=== PATIENT | female | born 1950 | race Caucasian/White ===

== ENCOUNTER 2021-06-05 22:21 | Inpatient (IN) | payer MEDICARE, BC ==
[~2021-06-05] VITALS: Ht 152.4 cm; Wt 100.0 kg
[2021-06-06 01:36] VITALS: BP 117/64
[2021-06-06] MEDS ORDERED: ACETAMINOPHEN 325 MG TABLET PO PRN ×2 (02:00→08:00)
[2021-06-06] MEDS ORDERED: LABETALOL 5MG/ML, 20ML IVPush PRN (02:00)
[2021-06-06] MEDS ORDERED: LORazepam 2 MG/ML, 1ML ONE (02:01)
[2021-06-06] MEDS: LORazepam 2 MG/ML, 1ML IVPush PRN ×2 (02:07→02:33)
[2021-06-06] MEDS ORDERED: PLEASE ENTER ALLERGIES MC SCH (02:30)
[2021-06-06 03:45] LABS: BASOPHILS % (AUTO) 0 % (0-1); EOSINOPHILS % (AUTO) 0 % (1-7); LYMPHOCYTES % (AUTO) 5 % (22-44); MEAN CORPUSCULAR HEMOGLOBIN 29.5 pg (27.0-34.8); MEAN PLATELET VOLUME 7.9 fL (7.4-10.4); MONOCYTES % (AUTO) 4 % (2-9); NEUTROPHILS % (AUTO) 91 % (42-75); PLATELET COUNT 245 x10^3/uL (130-400); RED BLOOD COUNT 4.85 x10^6/uL (3.82-5.3); RED CELL DISTRIBUTION WIDTH 13.6 % (9.6-15.2)
[2021-06-06 03:56] LABS: ALBUMIN 2.4 g/dL (3.4-5.0); ANION GAP 7 mmol/L (5-15); CALCIUM 8.5 mg/dL (8.5-10.1); CHLORIDE 114 mmol/L (98-107)
[2021-06-06 03:59] LABS: ALANINE AMINOTRANSFERASE 32 U/L (12-78); BILIRUBIN,TOTAL 0.6 mg/dL (0.2-1.0); CREATINE KINASE, TOTAL 479 U/L (26-192); TOTAL PROTEIN 6.7 g/dL (6.4-8.2); TROPONIN I 0.018 ng/mL (0.000-0.045)
[2021-06-06] MEDS ORDERED: THIAMINE 200 MG in SODIUM CHLORIDE 0.9% 50 ML IV ONE (04:00)
[2021-06-06] MEDS ORDERED: DOXYCYCLINE 100 MG in DEXTROSE 5% 250 ML IV SCH (04:00)
[2021-06-06] MEDS ORDERED: ALBU90AE2 INH (04:08)
[2021-06-06] MEDS ORDERED: ATOR20TA86 PO (04:08)
[2021-06-06] MEDS ORDERED: HYDR-3241 PO (04:08)
[2021-06-06] MEDS ORDERED: SERT-238 PO (04:08)
[2021-06-06] MEDS ORDERED: ZOLP10TA PO (04:08)
[2021-06-06] MEDS ORDERED: SOLI10TA7 PO (04:08)
[2021-06-06] MEDS ORDERED: TOPI50CA5 PO (04:08)
[2021-06-06] MEDS ORDERED: PREG200C PO (04:08)
[2021-06-06] MEDS ORDERED: METH-640 PO (04:08)
[2021-06-06 04:21] LABS: ALKALINE PHOSPHATASE 106 U/L (45-117)
[2021-06-06] MEDS: DEXAMETHASONE 4 MG/ML, 1ML IVPush SCH (04:39)
[2021-06-06 04:46] LABS: FREE T4 (FREE THYROXINE) 0.91 ng/dL (0.76-1.46)
[2021-06-06] MEDS: CEFTRIAXONE 1,000 MG in DEXTROSE 5% 50 ML IVPB SCH (05:00)
[2021-06-06] MEDS ORDERED: LORazepam 2 MG/ML, 1ML IVPush PRN (05:30)
[2021-06-06 07:20] VITALS: BP 129/83
[2021-06-06] MEDS ORDERED: FUROSEMIDE 40 MG/4 ML IV ONE (07:30)
[2021-06-06] MEDS ORDERED: ALBUTEROL/IPRATROPIUM 2.5MG/0.5MG, 3 ML HHN SCH (07:30)
[2021-06-06] MEDS ORDERED: ALBUTEROL SULFATE 2.5 MG/3 ML NPPB PRN (07:30)
[2021-06-06] MEDS ORDERED: ONDANSETRON 2MG/ML, 2ML IVPush PRN (08:00)
[2021-06-06] MEDS ORDERED: POLYETHYLENE GLYCOL 17 GM PACKET PO PRN (08:00)
[2021-06-06] MEDS ORDERED: HALOPERIDOL 5 MG/ML IVPush PRN (08:00)
[2021-06-06] MEDS ORDERED: GUAIFENESIN/COD200MG-20MG/10ML LIQUID PO PRN (08:00)
[2021-06-06] MEDS: ENOXAPARIN 100 MG/ML SQ SCH ×2 (08:44→20:37)
[2021-06-06] MEDS ORDERED: ALBUTEROL HFA 90 MCG/SPRAY INH PRN (09:00)
[2021-06-06 10:54] LABS: O2 FLOW 10 L/min
[2021-06-06 10:57] LABS: FREE T4 (FREE THYROXINE) 0.95 ng/dL (0.76-1.46); TROPONIN I 0.015 ng/mL (0.000-0.045)
[2021-06-06] MEDS: ALBUTEROL-IPRATROPIUM MDI INH INH SCH ×3 (11:00→19:34)
[2021-06-06] MEDS: ZINC SULFATE 220 MG CAPSULE PO SCH (11:23)
[2021-06-06] MEDS: SENNA/DOCUSATE TABLET PO SCH (11:23)
[2021-06-06] MEDS: ASCORBIC ACID 500 MG TABLET PO SCH ×2 (11:23→17:36)
[2021-06-06] MEDS: CHOLECALCIFEROL 1,000 UNIT TABLET PO SCH (11:23)
[2021-06-06 11:24] VITALS: BP 133/84
[2021-06-06 13:53] VITALS: BP 133/82
[2021-06-06 14:14] LABS: TROPONIN I < 0.015 ng/mL (0.000-0.045)
[2021-06-06] MEDS ORDERED: GLUCAGON 1 MG IM PRN (15:00)
[2021-06-06] MEDS ORDERED: DEXTROSE 50%, 50ML SYRINGE IVPush PRN (15:00)
[2021-06-06] MEDS ORDERED: LIDOCAINE-MPF 1%, 2ML ENDO PRN (15:00)
[2021-06-06] MEDS ORDERED: DEXTROSE 4 GM TAB.CHEW PO PRN (15:00)
[2021-06-06] MEDS ORDERED: PHARMACY MAY ADJ FOR RENAL FX MC SCH (15:00)
[2021-06-06] MEDS ORDERED: REMDESIVIR 200 MG in SODIUM CHLORIDE 0.9% 250 ML IVPB ONE (15:30)
[2021-06-06] MEDS: FUROSEMIDE 40 MG/4 ML IV SCH (17:36)
[2021-06-06] MEDS: NOREPINEPHRINE 8 MG in SODIUM CHLORIDE 0.9% 242 ML IV PRN (17:45)
[2021-06-06] MEDS: PROPOFOL 100 ML IV PRN ×3 (17:46→21:50)
[2021-06-06] MEDS ORDERED: ETOMIDATE 20 MG/10 ML ONE (19:18)
[2021-06-06] MEDS ORDERED: PROPOFOL 10 MG/ML, 100ML IV ONE (19:18)
[2021-06-06] MEDS ORDERED: MIDAZOLAM 1 MG/ML, 5ML ONE (19:18)
[2021-06-06] MEDS: DOXYCYCLINE 100MG TABLET PO SCH (20:38)
[2021-06-06] MEDS: SODIUM CHLORIDE FLUSH 10ML SYR IVF SCH (20:38)
[2021-06-06] MEDS ORDERED: FAMOTIDINE 10 MG TAB PO SCH (21:00)
[2021-06-07] MEDS: CEFTRIAXONE 1,000 MG in DEXTROSE 5% 50 ML IVPB SCH (03:55)
[2021-06-07] MEDS: PROPOFOL 100 ML IV PRN ×5 (04:36→20:37)
[2021-06-07 04:59] LABS: BASOPHILS % (AUTO) 0 % (0-1); EOSINOPHILS % (AUTO) 0 % (1-7); LYMPHOCYTES % (AUTO) 9 % (22-44); MEAN CORPUSCULAR HEMOGLOBIN 29.9 pg (27.0-34.8); MEAN CORPUSCULAR HGB CONC 33.6 g/dL (32.4-35.8); MEAN PLATELET VOLUME 8.1 fL (7.4-10.4); MONOCYTES % (AUTO) 6 % (2-9); NEUTROPHILS % (AUTO) 86 % (42-75); PLATELET COUNT 378 x10^3/uL (130-400); RED BLOOD COUNT 4.77 x10^6/uL (3.82-5.3); RED CELL DISTRIBUTION WIDTH 13.4 % (9.6-15.2)
[2021-06-07 05:08] LABS: ALANINE AMINOTRANSFERASE 56 U/L (12-78); ALBUMIN 2.2 g/dL (3.4-5.0); ANION GAP 8 mmol/L (5-15); CALCIUM 9.1 mg/dL (8.5-10.1); CHLORIDE 110 mmol/L (98-107); CREATININE 0.69 mg/dL (0.55-1.02)
[2021-06-07 05:11] LABS: ALKALINE PHOSPHATASE 104 U/L (45-117); BILIRUBIN,TOTAL 0.7 mg/dL (0.2-1.0); TOTAL PROTEIN 6.6 g/dL (6.4-8.2)
[2021-06-07] MEDS ORDERED: MAGNESIUM SULFATE PMX 2GM/50ML 50 ML IV ONE (07:00)
[2021-06-07 07:25] LABS: MICROSCOPIC INDICATED
[2021-06-07] MEDS: FUROSEMIDE 40 MG/4 ML IV SCH ×2 (07:43→16:58)
[2021-06-07] MEDS: POTASSIUM CHLORIDE 20 MEQ PACKET PO SCH ×2 (07:43→16:58)
[2021-06-07] MEDS: ASCORBIC ACID 500 MG TABLET PO SCH ×2 (07:43→16:58)
[2021-06-07] MEDS: SODIUM CHLORIDE FLUSH 10ML SYR IVF SCH ×2 (07:44→20:32)
[2021-06-07] MEDS: SENNA/DOCUSATE TABLET PO SCH (08:58)
[2021-06-07] MEDS: ENOXAPARIN 100 MG/ML SQ SCH ×2 (09:11→20:33)
[2021-06-07] MEDS: DOXYCYCLINE 100MG TABLET PO SCH ×2 (09:11→20:32)
[2021-06-07] MEDS: CHOLECALCIFEROL 1,000 UNIT TABLET PO SCH (09:11)
[2021-06-07] MEDS: ZINC SULFATE 220 MG CAPSULE PO SCH (09:11)
[2021-06-07] MEDS: DEXAMETHASONE 4 MG/ML, 1ML IVPush SCH (09:12)
[2021-06-07] MEDS: FAMOTIDINE 20 MG/2 ML IVPush SCH ×2 (09:12→20:33)
[2021-06-07] MEDS ORDERED: ALBUTEROL HFA 90 MCG/SPRAY INH PRN (10:00)
[2021-06-07] MEDS ORDERED: ALBUTEROL SULFATE 2.5 MG/3 ML NPPB PRN (10:00)
[2021-06-07] MEDS ORDERED: ALBUTEROL SULFATE 2.5MG/0.5ML NPPB PRN (10:00)
[2021-06-07] MEDS: THIAMINE 100MG TABLET PO/NG SCH (10:45)
[2021-06-07] MEDS: NOREPINEPHRINE 8 MG in SODIUM CHLORIDE 0.9% 242 ML IV PRN (10:45)
[2021-06-07] MEDS ORDERED: ALBUTEROL/IPRATROPIUM 2.5MG/0.5MG, 3 ML NPPB SCH (11:00)
[2021-06-07] MEDS: ALBUTEROL/IPRATROPIUM 2.5MG/0.5MG, 3 ML NPPB SCH ×2 (15:00→19:05)
[2021-06-07] MEDS ORDERED: REMDESIVIR 100 MG in SODIUM CHLORIDE 0.9% 250 ML IVPB SCH (15:30)
[2021-06-07] MEDS: FENTANYL PF 1,000 MCG in SODIUM CHLORIDE 0.9% 80 ML IV PRN (16:58)
[2021-06-08] MEDS: PROPOFOL 100 ML IV PRN ×7 (00:18→23:59)
[2021-06-08] MEDS: ALBUTEROL/IPRATROPIUM 2.5MG/0.5MG, 3 ML NPPB SCH ×5 (03:05→19:40)
[2021-06-08] MEDS: CEFTRIAXONE 1,000 MG in DEXTROSE 5% 50 ML IVPB SCH (04:02)
[2021-06-08] MEDS: FENTANYL PF 1,000 MCG in SODIUM CHLORIDE 0.9% 80 ML IV PRN ×3 (04:05→20:43)
[2021-06-08 04:35] LABS: BASOPHILS % (AUTO) 0 % (0-1); EOSINOPHILS % (AUTO) 0 % (1-7); LYMPHOCYTES % (AUTO) 12 % (22-44); MEAN CORPUSCULAR HEMOGLOBIN 29.8 pg (27.0-34.8); MEAN CORPUSCULAR HGB CONC 33.1 g/dL (32.4-35.8); MEAN PLATELET VOLUME 8.3 fL (7.4-10.4); MONOCYTES % (AUTO) 4 % (2-9); NEUTROPHILS % (AUTO) 84 % (42-75); PLATELET COUNT 341 x10^3/uL (130-400); RED BLOOD COUNT 4.61 x10^6/uL (3.82-5.3); RED CELL DISTRIBUTION WIDTH 13.4 % (9.6-15.2)
[2021-06-08 04:43] LABS: ANION GAP 6 mmol/L (5-15); CALCIUM 8.6 mg/dL (8.5-10.1); CHLORIDE 110 mmol/L (98-107); CREATININE 0.57 mg/dL (0.55-1.02)
[2021-06-08] MEDS ORDERED: POTASSIUM CHLORIDE 30 MEQ in SODIUM CHLORIDE 0.9% 100 ML IV ONE ×2 (06:00→09:00)
[2021-06-08] MEDS: FUROSEMIDE 40 MG/4 ML IV SCH ×2 (06:39→16:35)
[2021-06-08] MEDS: SODIUM CHLORIDE FLUSH 10ML SYR IVF SCH ×2 (09:00→20:41)
[2021-06-08] MEDS: POTASSIUM CHLORIDE 20 MEQ PACKET PO SCH ×4 (09:00→20:42)
[2021-06-08] MEDS: ENOXAPARIN 100 MG/ML SQ SCH ×2 (09:00→20:42)
[2021-06-08] MEDS: ZINC SULFATE 220 MG CAPSULE PO SCH (09:32)
[2021-06-08] MEDS: SENNA/DOCUSATE TABLET PO SCH (09:32)
[2021-06-08] MEDS: CHOLECALCIFEROL 1,000 UNIT TABLET PO SCH (09:32)
[2021-06-08] MEDS: THIAMINE 100MG TABLET PO/NG SCH (09:32)
[2021-06-08] MEDS: DEXAMETHASONE 4 MG/ML, 1ML IVPush SCH (09:33)
[2021-06-08] MEDS: ASCORBIC ACID 500 MG TABLET PO SCH ×2 (09:33→16:35)
[2021-06-08] MEDS: DOXYCYCLINE 100MG TABLET PO SCH ×2 (09:33→20:42)
[2021-06-08] MEDS: FAMOTIDINE 20 MG/2 ML IVPush SCH ×2 (09:33→20:42)
[2021-06-08] MEDS: NOREPINEPHRINE 8 MG in SODIUM CHLORIDE 0.9% 242 ML IV PRN (10:09)
[2021-06-08] MEDS ORDERED: MIDAZOLAM 1 MG/ML, 5ML ONE (15:18)
[2021-06-08] MEDS ORDERED: MIDAZOLAM HCL 50 MG in SODIUM CHLORIDE 0.9% 40 ML IV PRN (15:30)
[2021-06-08] MEDS ORDERED: MIDAZOLAM 1 MG/ML, 5ML IVPush ONE (15:30)
[2021-06-08 21:23] LABS: ALANINE AMINOTRANSFERASE 40 U/L (12-78); ANION GAP 5 mmol/L (5-15); CALCIUM 8.8 mg/dL (8.5-10.1); CHLORIDE 111 mmol/L (98-107); CREATININE 0.59 mg/dL (0.55-1.02)
[2021-06-08 21:26] LABS: ALKALINE PHOSPHATASE 97 U/L (45-117); BILIRUBIN,TOTAL 0.4 mg/dL (0.2-1.0); TOTAL PROTEIN 6.6 g/dL (6.4-8.2)
[2021-06-09] MEDS: ALBUTEROL/IPRATROPIUM 2.5MG/0.5MG, 3 ML NPPB SCH ×4 (01:40→20:12)
[2021-06-09] MEDS: PROPOFOL 100 ML IV PRN ×5 (02:39→19:56)
[2021-06-09] MEDS: CEFTRIAXONE 1,000 MG in DEXTROSE 5% 50 ML IVPB SCH (03:37)
[2021-06-09 05:31] LABS: BASOPHILS % (AUTO) 0 % (0-1); EOSINOPHILS % (AUTO) 2 % (1-7); LYMPHOCYTES % (AUTO) 7 % (22-44); MEAN CORPUSCULAR HEMOGLOBIN 29.6 pg (27.0-34.8); MEAN CORPUSCULAR HGB CONC 33.1 g/dL (32.4-35.8); MONOCYTES % (AUTO) 4 % (2-9); NEUTROPHILS % (AUTO) 87 % (42-75); PLATELET COUNT 394 x10^3/uL (130-400); RED BLOOD COUNT 4.52 x10^6/uL (3.82-5.3); RED CELL DISTRIBUTION WIDTH 13.3 % (9.6-15.2)
[2021-06-09 05:55] LABS: ANION GAP 5 mmol/L (5-15); CALCIUM 9.1 mg/dL (8.5-10.1); CHLORIDE 109 mmol/L (98-107)
[2021-06-09 05:56] LABS: CREATININE 0.45 mg/dL (0.55-1.02); TRIGLYCERIDES 159 mg/dL (50-200)
[2021-06-09] MEDS: FUROSEMIDE 40 MG/4 ML IV SCH ×2 (06:31→16:32)
[2021-06-09] MEDS ORDERED: PLEASE ENTER HEIGHT MC SCH (07:00)
[2021-06-09] MEDS: NOREPINEPHRINE 8 MG in SODIUM CHLORIDE 0.9% 242 ML IV PRN ×2 (08:11→16:32)
[2021-06-09] MEDS: FENTANYL PF 1,000 MCG in SODIUM CHLORIDE 0.9% 80 ML IV PRN ×2 (08:11→19:55)
[2021-06-09] MEDS: ENOXAPARIN 100 MG/ML SQ SCH ×2 (09:38→19:57)
[2021-06-09] MEDS: POTASSIUM CHLORIDE 20 MEQ PACKET PO SCH ×2 (10:44→16:31)
[2021-06-09] MEDS: FAMOTIDINE 20 MG/2 ML IVPush SCH ×2 (10:44→19:57)
[2021-06-09] MEDS: DEXAMETHASONE 4 MG/ML, 1ML IVPush SCH (10:45)
[2021-06-09] MEDS: DOXYCYCLINE 100MG TABLET PO SCH ×2 (10:45→19:56)
[2021-06-09] MEDS: THIAMINE 100MG TABLET PO/NG SCH (10:46)
[2021-06-09] MEDS: ASCORBIC ACID 500 MG TABLET PO SCH ×2 (10:46→16:31)
[2021-06-09] MEDS: CHOLECALCIFEROL 1,000 UNIT TABLET PO SCH (10:47)
[2021-06-09] MEDS: ZINC SULFATE 220 MG CAPSULE PO SCH (10:47)
[2021-06-09] MEDS: SENNA/DOCUSATE TABLET PO SCH (10:49)
[2021-06-09] MEDS: SODIUM CHLORIDE FLUSH 10ML SYR IVF SCH ×2 (10:49→19:57)
[2021-06-09 11:39] LABS: ALBUMIN 1.8 g/dL (3.4-5.0); ANION GAP 7 mmol/L (5-15); CALCIUM 8.7 mg/dL (8.5-10.1); CHLORIDE 109 mmol/L (98-107)
[2021-06-09 11:43] LABS: ALANINE AMINOTRANSFERASE 35 U/L (12-78); ALKALINE PHOSPHATASE 95 U/L (45-117); BILIRUBIN,TOTAL 0.5 mg/dL (0.2-1.0); CREATININE 0.49 mg/dL (0.55-1.02); TOTAL PROTEIN 6.4 g/dL (6.4-8.2)
[2021-06-09] MEDS: DOXYCYCLINE 50 MG/5 ML ORAL SUSP PO SCH (22:21)
[2021-06-10] MEDS: ALBUTEROL/IPRATROPIUM 2.5MG/0.5MG, 3 ML NPPB SCH ×4 (01:54→19:32)
[2021-06-10] MEDS: CEFTRIAXONE 1,000 MG in DEXTROSE 5% 50 ML IVPB SCH (04:21)
[2021-06-10] MEDS: PROPOFOL 100 ML IV PRN ×3 (04:21→23:12)
[2021-06-10 05:19] LABS: BASOPHILS % (AUTO) 0 % (0-1); EOSINOPHILS % (AUTO) 3 % (1-7); LYMPHOCYTES % (AUTO) 10 % (22-44); MEAN CORPUSCULAR HEMOGLOBIN 29.6 pg (27.0-34.8); MEAN CORPUSCULAR HGB CONC 32.9 g/dL (32.4-35.8); MEAN PLATELET VOLUME 8.4 fL (7.4-10.4); MONOCYTES % (AUTO) 5 % (2-9); NEUTROPHILS % (AUTO) 82 % (42-75); PLATELET COUNT 398 x10^3/uL (130-400); RED BLOOD COUNT 4.45 x10^6/uL (3.82-5.3); RED CELL DISTRIBUTION WIDTH 13.6 % (9.6-15.2)
[2021-06-10 05:26] LABS: ANION GAP 3 mmol/L (5-15); CALCIUM 8.9 mg/dL (8.5-10.1); CHLORIDE 110 mmol/L (98-107); CREATININE 0.46 mg/dL (0.55-1.02)
[2021-06-10] MEDS: FUROSEMIDE 40 MG/4 ML IV SCH (06:31)
[2021-06-10] MEDS: FAMOTIDINE 20 MG/2 ML IVPush SCH ×2 (09:44→20:53)
[2021-06-10] MEDS: SENNA/DOCUSATE TABLET PO SCH (09:44)
[2021-06-10] MEDS: ZINC SULFATE 220 MG CAPSULE PO SCH (09:44)
[2021-06-10] MEDS: DEXAMETHASONE 4 MG/ML, 1ML IVPush SCH (09:44)
[2021-06-10] MEDS: CHOLECALCIFEROL 1,000 UNIT TABLET PO SCH (09:45)
[2021-06-10] MEDS: THIAMINE 100MG TABLET PO/NG SCH (09:46)
[2021-06-10] MEDS: ENOXAPARIN 100 MG/ML SQ SCH ×2 (09:46→20:54)
[2021-06-10] MEDS: SODIUM CHLORIDE FLUSH 10ML SYR IVF SCH ×2 (09:49→20:53)
[2021-06-10] MEDS: DOXYCYCLINE 50 MG/5 ML ORAL SUSP PO SCH ×2 (09:53→20:53)
[2021-06-10] MEDS: ASCORBIC ACID 500 MG TABLET PO SCH ×2 (09:53→16:53)
[2021-06-10] MEDS: FENTANYL PF 2,500 MCG in SODIUM CHLORIDE 0.9% 200 ML IV PRN (10:42)
[2021-06-10] MEDS: PREGABALIN 200 MG CAPSULE PO SCH (20:54)
[2021-06-11] MEDS: ALBUTEROL/IPRATROPIUM 2.5MG/0.5MG, 3 ML NPPB SCH ×4 (02:33→21:00)
[2021-06-11] MEDS: CEFTRIAXONE 1,000 MG in DEXTROSE 5% 50 ML IVPB SCH (04:09)
[2021-06-11] MEDS: PROPOFOL 100 ML IV PRN ×4 (04:12→21:33)
[2021-06-11] MEDS: ASCORBIC ACID 500 MG TABLET PO SCH ×2 (08:00→17:16)
[2021-06-11 08:18] LABS: BASOPHILS % (AUTO) 1 % (0-1); EOSINOPHILS % (AUTO) 3 % (1-7); LYMPHOCYTES % (AUTO) 16 % (22-44); MEAN CORPUSCULAR HGB CONC 32.1 g/dL (32.4-35.8); MEAN PLATELET VOLUME 8.1 fL (7.4-10.4); MONOCYTES % (AUTO) 5 % (2-9); NEUTROPHILS % (AUTO) 76 % (42-75); PLATELET COUNT 434 x10^3/uL (130-400); RED BLOOD COUNT 4.17 x10^6/uL (3.82-5.3)
[2021-06-11 08:27] LABS: ANION GAP 6 mmol/L (5-15); CALCIUM 8.6 mg/dL (8.5-10.1); CHLORIDE 107 mmol/L (98-107); CREATININE 0.53 mg/dL (0.55-1.02)
[2021-06-11] MEDS ORDERED: TOPIRAMATE PO SCH (09:00)
[2021-06-11] MEDS: ENOXAPARIN 100 MG/ML SQ SCH ×2 (09:00→21:12)
[2021-06-11] MEDS: FUROSEMIDE 40 MG/4 ML IV SCH ×2 (09:25→17:17)
[2021-06-11] MEDS: THIAMINE 100MG TABLET PO/NG SCH (09:26)
[2021-06-11] MEDS: DEXAMETHASONE 4 MG/ML, 1ML IVPush SCH (09:26)
[2021-06-11] MEDS: CHOLECALCIFEROL 1,000 UNIT TABLET PO SCH (09:26)
[2021-06-11] MEDS: PREGABALIN 200 MG CAPSULE PO SCH ×2 (09:26→21:12)
[2021-06-11] MEDS: FAMOTIDINE 20 MG/2 ML IVPush SCH ×2 (09:26→21:12)
[2021-06-11] MEDS: SENNA/DOCUSATE TABLET PO SCH (09:26)
[2021-06-11] MEDS: SERTRALINE 100MG TABLET PO SCH (09:27)
[2021-06-11] MEDS: ZINC SULFATE 220 MG CAPSULE PO SCH (09:27)
[2021-06-11] MEDS: SODIUM CHLORIDE FLUSH 10ML SYR IVF SCH ×2 (09:27→21:12)
[2021-06-11] MEDS: DOXYCYCLINE 100 MG in DEXTROSE 5% 250 ML IV SCH ×2 (09:28→21:12)
--- NOTE | 2021-06-11 14:14 | NUR ---
BENEPROTEIN: Infuse 2-packets Beneprotein BID Beneprotein (protein modular) instructions: Prepare per protocol instructions: - Fully dissolve 1-packet of Beneprotein powder (7gm) is to be into 60 mL fluid ounces of the water (90-120mL water for 2-packets). Stir until dissolved. - Flush feeding tube with 15-30 ml of water before administering the Beneprotein solution. - Administer the Beneprotein solution via feeding tube. - Flush the feeding tube with 15-30ml of water after the completion of the Beneprotein solution administration. Addendum: 06/11/21 at [address] Amended: Links added.
[2021-06-11] MEDS: TOPIRAMATE 25 MG TABLET PO SCH (16:04)
[2021-06-11] MEDS: FENTANYL PF 2,500 MCG in SODIUM CHLORIDE 0.9% 200 ML IV PRN (21:09)
[2021-06-12] MEDS: ALBUTEROL/IPRATROPIUM 2.5MG/0.5MG, 3 ML NPPB SCH ×4 (01:57→20:06)
[2021-06-12] MEDS: CEFTRIAXONE 1,000 MG in DEXTROSE 5% 50 ML IVPB SCH (04:17)
[2021-06-12 04:59] LABS: MEAN CORPUSCULAR HGB CONC 32.2 g/dL (32.4-35.8); MEAN PLATELET VOLUME 8.3 fL (7.4-10.4); PLATELET COUNT 522 x10^3/uL (130-400); RED BLOOD COUNT 3.94 x10^6/uL (3.82-5.3)
[2021-06-12 05:09] LABS: ANION GAP 3 mmol/L (5-15); CHLORIDE 101 mmol/L (98-107)
[2021-06-12 05:10] LABS: CREATININE 0.43 mg/dL (0.55-1.02); TRIGLYCERIDES 134 mg/dL (50-200)
[2021-06-12] MEDS: PROPOFOL 100 ML IV PRN ×5 (05:38→23:18)
[2021-06-12] MEDS: NOREPINEPHRINE 8 MG in SODIUM CHLORIDE 0.9% 242 ML IV PRN (05:39)
[2021-06-12 05:56] LABS: BAND#(MANUAL) 0.28 x10^3/uL; BANDS%(MANUAL) 4 % (0-7); LYMPH#(MANUAL) 0.21 x10^3/uL (1-3.4); LYMPHS% (MANUAL) 3 % (22-44); MONOS#(MANUAL) 0.28 x10^3/uL (0.3-2.7); MONOS% (MANUAL) 4 % (2-9); MYELOCYTES# (MANUAL) 0.07 x10^3/uL (0-0); MYELOCYTES% (MANUAL) 1 % (0-0); SEG#(MANUAL) 6.25 x10^3/uL (1.8-6.8); SEGS% (MANUAL) 88 % (42-75)
[2021-06-12 05:57] LABS: <PLATELET ESTIMATE> ADEQUATE; LARGE PLATELETS 1+; POLYCHROMASIA 1+
[2021-06-12] MEDS: SERTRALINE 100MG TABLET PO SCH (08:31)
[2021-06-12] MEDS: THIAMINE 100MG TABLET PO/NG SCH (08:31)
[2021-06-12] MEDS: ASCORBIC ACID 500 MG TABLET PO SCH ×2 (08:31→17:16)
[2021-06-12] MEDS: SENNA/DOCUSATE TABLET PO SCH (08:32)
[2021-06-12] MEDS: ZINC SULFATE 220 MG CAPSULE PO SCH (08:32)
[2021-06-12] MEDS: CHOLECALCIFEROL 1,000 UNIT TABLET PO SCH (08:32)
[2021-06-12] MEDS: DEXAMETHASONE 4 MG/ML, 1ML IVPush SCH (08:32)
[2021-06-12] MEDS: TOPIRAMATE 25 MG TABLET PO SCH (08:32)
[2021-06-12] MEDS: PREGABALIN 200 MG CAPSULE PO SCH ×2 (08:32→22:10)
[2021-06-12] MEDS: FAMOTIDINE 20 MG/2 ML IVPush SCH ×2 (08:32→22:11)
[2021-06-12] MEDS: FUROSEMIDE 40 MG/4 ML IV SCH ×2 (08:32→17:16)
[2021-06-12] MEDS: ENOXAPARIN 100 MG/ML SQ SCH ×2 (08:32→22:11)
[2021-06-12] MEDS: SODIUM CHLORIDE FLUSH 10ML SYR IVF SCH ×2 (08:33→22:11)
[2021-06-12] MEDS: DOXYCYCLINE 100 MG in DEXTROSE 5% 250 ML IV SCH ×2 (08:47→22:10)
[2021-06-12] MEDS ORDERED: CEFAZOLIN 2,000 MG in SODIUM CHLORIDE 0.9% 50 ML IV SCH ×2 (10:00→11:00)
[2021-06-12] MEDS: POTASSIUM CHLORIDE 10% 40 MEQ/30 ML UDC PO SCH (10:29)
[2021-06-12] MEDS: CEFAZOLIN PMX 2GM/50ML 50 ML IVPB SCH ×2 (10:29→18:34)
[2021-06-13] MEDS: FENTANYL PF 2,500 MCG in SODIUM CHLORIDE 0.9% 200 ML IV PRN (01:15)
[2021-06-13] MEDS: ALBUTEROL/IPRATROPIUM 2.5MG/0.5MG, 3 ML NPPB SCH ×4 (01:59→20:28)
[2021-06-13] MEDS: CEFAZOLIN PMX 2GM/50ML 50 ML IVPB SCH ×3 (03:34→18:18)
[2021-06-13 04:27] LABS: MEAN CORPUSCULAR HEMOGLOBIN 29.2 pg (27.0-34.8); MEAN CORPUSCULAR HGB CONC 32.5 g/dL (32.4-35.8); MEAN PLATELET VOLUME 8.3 fL (7.4-10.4); PLATELET COUNT 514 x10^3/uL (130-400); RED BLOOD COUNT 3.95 x10^6/uL (3.82-5.3); RED CELL DISTRIBUTION WIDTH 12.7 % (9.6-15.2)
[2021-06-13 04:33] LABS: ANION GAP 5 mmol/L (5-15); CALCIUM 9.3 mg/dL (8.5-10.1); CHLORIDE 98 mmol/L (98-107); CREATININE 0.46 mg/dL (0.55-1.02)
[2021-06-13 05:01] LABS: BAND#(MANUAL) 0.36 x10^3/uL; BANDS%(MANUAL) 5 % (0-7); BASOS#(MANUAL) 0.07 x10^3/uL (0-0.1); BASOS% (MANUAL) 1 % (0-1); EOS#(MANUAL) 0.14 x10^3/uL (0.0-0.4); EOS% (MANUAL) 2 % (1-7); LYMPH#(MANUAL) 0.65 x10^3/uL (1-3.4); LYMPHS% (MANUAL) 9 % (22-44); METAMYELOCYTES# (MANUAL) 0.14 x10^3/uL (0-0); METAMYELOCYTES% (MANUAL) 2 % (0-1); MONOS#(MANUAL) 0.29 x10^3/uL (0.3-2.7); MONOS% (MANUAL) 4 % (2-9); MYELOCYTES# (MANUAL) 0.14 x10^3/uL (0-0); MYELOCYTES% (MANUAL) 2 % (0-0); SEGS% (MANUAL) 75 % (42-75)
[2021-06-13 05:02] LABS: <PLATELET ESTIMATE> INCREASED; LARGE PLATELETS 1+
[2021-06-13] MEDS: PROPOFOL 100 ML IV PRN ×5 (05:31→20:18)
[2021-06-13] MEDS: DOXYCYCLINE 100 MG in DEXTROSE 5% 250 ML IV SCH ×2 (08:02→20:32)
[2021-06-13] MEDS: FUROSEMIDE 40 MG/4 ML IV SCH ×2 (08:02→16:26)
[2021-06-13] MEDS ORDERED: POTASSIUM CHLORIDE 20 MEQ PACKET ONE (08:52)
[2021-06-13] MEDS: ASCORBIC ACID 500 MG TABLET PO SCH ×2 (08:53→16:27)
[2021-06-13] MEDS: POTASSIUM CHLORIDE 10% 40 MEQ/30 ML UDC PO SCH (08:54)
[2021-06-13] MEDS: FAMOTIDINE 20 MG/2 ML IVPush SCH ×2 (08:54→20:41)
[2021-06-13] MEDS: PREGABALIN 200 MG CAPSULE PO SCH ×2 (08:54→20:40)
[2021-06-13] MEDS: SODIUM CHLORIDE FLUSH 10ML SYR IVF SCH ×2 (08:54→20:34)
[2021-06-13] MEDS: DEXAMETHASONE 4 MG/ML, 1ML IVPush SCH (08:54)
[2021-06-13] MEDS: ZINC SULFATE 220 MG CAPSULE PO SCH (08:55)
[2021-06-13] MEDS: SENNA/DOCUSATE TABLET PO SCH (08:55)
[2021-06-13] MEDS: CHOLECALCIFEROL 1,000 UNIT TABLET PO SCH (08:55)
[2021-06-13] MEDS: TOPIRAMATE 25 MG TABLET PO SCH (08:55)
[2021-06-13] MEDS: THIAMINE 100MG TABLET PO/NG SCH (08:56)
[2021-06-13] MEDS: ENOXAPARIN 100 MG/ML SQ SCH ×2 (08:56→20:40)
[2021-06-13] MEDS: SERTRALINE 100MG TABLET PO SCH (08:56)
[2021-06-13] MEDS ORDERED: POTASSIUM CHLORIDE 20 MEQ PACKET PO SCH (09:00)
[2021-06-13] MEDS: NOREPINEPHRINE 8 MG in SODIUM CHLORIDE 0.9% 242 ML IV PRN (14:52)
[2021-06-14] MEDS: PROPOFOL 100 ML IV PRN ×6 (01:44→21:00)
[2021-06-14] MEDS: FENTANYL PF 2,500 MCG in SODIUM CHLORIDE 0.9% 200 ML IV PRN ×2 (01:49→23:37)
[2021-06-14] MEDS: ALBUTEROL/IPRATROPIUM 2.5MG/0.5MG, 3 ML NPPB SCH ×4 (02:01→19:06)
[2021-06-14] MEDS ORDERED: VECURONIUM 10 MG ONE (02:38)
[2021-06-14] MEDS: FUROSEMIDE 40 MG/4 ML IV SCH ×2 (02:47→17:36)
[2021-06-14] MEDS: CEFAZOLIN PMX 2GM/50ML 50 ML IVPB SCH ×3 (02:47→18:23)
[2021-06-14] MEDS ORDERED: VECURONIUM 10 MG IVPush ONE ×2 (03:00→06:00)
[2021-06-14 03:47] LABS: MEAN CORPUSCULAR HEMOGLOBIN 29.6 pg (27.0-34.8); MEAN PLATELET VOLUME 8.6 fL (7.4-10.4); PLATELET COUNT 436 x10^3/uL (130-400); RED BLOOD COUNT 3.98 x10^6/uL (3.82-5.3); RED CELL DISTRIBUTION WIDTH 12.8 % (9.6-15.2)
[2021-06-14 04:00] LABS: CALCIUM 9.4 mg/dL (8.5-10.1); CHLORIDE 98 mmol/L (98-107)
[2021-06-14 04:04] LABS: ANION GAP 7 mmol/L (5-15); CREATININE 0.44 mg/dL (0.55-1.02)
[2021-06-14] MEDS ORDERED: VECURONIUM 50 MG in SODIUM CHLORIDE 0.9% 50 ML IV PRN (05:00)
[2021-06-14 05:44] LABS: <PLATELET ESTIMATE> INCREASED; <PLT MORPHOLOGY> NORMAL PLT MORPH; BAND#(MANUAL) 0.07 x10^3/uL; BANDS%(MANUAL) 1 % (0-7); LYMPHS% (MANUAL) 20 % (22-44); METAMYELOCYTES# (MANUAL) 0.07 x10^3/uL (0-0); METAMYELOCYTES% (MANUAL) 1 % (0-1); MONOS#(MANUAL) 0.39 x10^3/uL (0.3-2.7); MONOS% (MANUAL) 6 % (2-9); MYELOCYTES# (MANUAL) 0.13 x10^3/uL (0-0); MYELOCYTES% (MANUAL) 2 % (0-0); POLYCHROMASIA 1+; SEG#(MANUAL) 4.55 x10^3/uL (1.8-6.8); SEGS% (MANUAL) 70 % (42-75)
[2021-06-14] MEDS ORDERED: POTASSIUM CHLORIDE 20 MEQ PACKET PO ONE (08:30)
[2021-06-14] MEDS: SERTRALINE 100MG TABLET PO SCH (08:51)
[2021-06-14] MEDS: TOPIRAMATE 25 MG TABLET PO SCH (08:51)
[2021-06-14] MEDS: ARTIFICIAL TEARS OINT 3.5 GM EACHEYE SCH ×3 (08:51→23:36)
[2021-06-14] MEDS: SENNA/DOCUSATE TABLET PO SCH (08:51)
[2021-06-14] MEDS: ASCORBIC ACID 500 MG TABLET PO SCH ×2 (08:51→17:36)
[2021-06-14] MEDS: CHOLECALCIFEROL 1,000 UNIT TABLET PO SCH (08:52)
[2021-06-14] MEDS: SODIUM CHLORIDE FLUSH 10ML SYR IVF SCH ×2 (08:52→20:47)
[2021-06-14] MEDS: ZINC SULFATE 220 MG CAPSULE PO SCH (08:52)
[2021-06-14] MEDS: DEXAMETHASONE 4 MG/ML, 1ML IVPush SCH (08:52)
[2021-06-14] MEDS: POTASSIUM CHLORIDE 10% 40 MEQ/30 ML UDC PO SCH (08:52)
[2021-06-14] MEDS: PREGABALIN 200 MG CAPSULE PO SCH ×2 (08:52→20:47)
[2021-06-14] MEDS: DOXYCYCLINE 100 MG in DEXTROSE 5% 250 ML IV SCH ×2 (08:52→20:46)
[2021-06-14] MEDS: ENOXAPARIN 100 MG/ML SQ SCH ×2 (08:53→20:47)
[2021-06-14] MEDS: THIAMINE 100MG TABLET PO/NG SCH (09:00)
[2021-06-14] MEDS ORDERED: LIDOCAINE 1%, 10ML ONE (16:24)
[2021-06-14] MEDS: FAMOTIDINE 20 MG/2 ML IVPush SCH (20:47)
[2021-06-15] MEDS: ALBUTEROL/IPRATROPIUM 2.5MG/0.5MG, 3 ML NPPB SCH ×4 (01:01→20:00)
[2021-06-15] MEDS: CEFAZOLIN PMX 2GM/50ML 50 ML IVPB SCH ×3 (03:27→19:23)
[2021-06-15] MEDS: PROPOFOL 100 ML IV PRN ×4 (03:28→23:56)
[2021-06-15] MEDS ORDERED: SUCCINYLCHOLINE 20 MG/ML, 10ML ONE (06:25)
[2021-06-15] MEDS ORDERED: ETOMIDATE 20 MG/10 ML ONE (06:25)
[2021-06-15] MEDS ORDERED: PROPOFOL 10 MG/ML, 100ML IV ONE (06:25)
[2021-06-15 06:27] LABS: ANION GAP 4 mmol/L (5-15); CALCIUM 9.4 mg/dL (8.5-10.1); CHLORIDE 98 mmol/L (98-107); CREATININE 0.44 mg/dL (0.55-1.02); TRIGLYCERIDES 157 mg/dL (50-200)
[2021-06-15 06:28] LABS: MEAN CORPUSCULAR HEMOGLOBIN 29.1 pg (27.0-34.8); MEAN PLATELET VOLUME 8.4 fL (7.4-10.4); PLATELET COUNT 453 x10^3/uL (130-400); RED BLOOD COUNT 3.82 x10^6/uL (3.82-5.3); RED CELL DISTRIBUTION WIDTH 12.7 % (9.6-15.2)
[2021-06-15] MEDS: FUROSEMIDE 40 MG/4 ML IV SCH ×2 (06:53→17:56)
[2021-06-15 07:53] LABS: <PLATELET ESTIMATE> INCREASED; <PLT MORPHOLOGY> NORMAL PLT MORPH; BAND#(MANUAL) 0.26 x10^3/uL; BANDS%(MANUAL) 4 % (0-7); EOS% (MANUAL) 3 % (1-7); LYMPH#(MANUAL) 0.59 x10^3/uL (1-3.4); LYMPHS% (MANUAL) 9 % (22-44); METAMYELOCYTES# (MANUAL) 0.26 x10^3/uL (0-0); METAMYELOCYTES% (MANUAL) 4 % (0-1); MONOS#(MANUAL) 0.26 x10^3/uL (0.3-2.7); MONOS% (MANUAL) 4 % (2-9); MYELOCYTES# (MANUAL) 0.13 x10^3/uL (0-0); MYELOCYTES% (MANUAL) 2 % (0-0); POLYCHROMASIA 1+; SEG#(MANUAL) 4.81 x10^3/uL (1.8-6.8); SEGS% (MANUAL) 74 % (42-75)
[2021-06-15] MEDS: ARTIFICIAL TEARS OINT 3.5 GM EACHEYE SCH ×3 (08:40→23:13)
[2021-06-15] MEDS: PREGABALIN 200 MG CAPSULE PO SCH ×2 (08:41→20:51)
[2021-06-15] MEDS: DEXAMETHASONE 4 MG/ML, 1ML IVPush SCH (08:41)
[2021-06-15] MEDS: ASCORBIC ACID 500 MG TABLET PO SCH ×2 (08:41→17:57)
[2021-06-15] MEDS: SODIUM CHLORIDE FLUSH 10ML SYR IVF SCH ×2 (08:42→19:23)
[2021-06-15] MEDS: SENNA/DOCUSATE TABLET PO SCH (08:42)
[2021-06-15] MEDS: THIAMINE 100MG TABLET PO/NG SCH (08:43)
[2021-06-15] MEDS: TOPIRAMATE 25 MG TABLET PO SCH (08:43)
[2021-06-15] MEDS: SERTRALINE 100MG TABLET PO SCH (08:43)
[2021-06-15] MEDS: CHOLECALCIFEROL 1,000 UNIT TABLET PO SCH (08:43)
[2021-06-15] MEDS: ZINC SULFATE 220 MG CAPSULE PO SCH (08:43)
[2021-06-15] MEDS: ENOXAPARIN 100 MG/ML SQ SCH ×2 (08:44→20:50)
[2021-06-15] MEDS: DOXYCYCLINE 100 MG in DEXTROSE 5% 250 ML IV SCH ×2 (08:53→20:50)
[2021-06-15] MEDS: POTASSIUM CHLORIDE 10% 40 MEQ/30 ML UDC PO SCH (08:54)
[2021-06-15] MEDS: FAMOTIDINE 20 MG/2 ML IVPush SCH (20:50)
[2021-06-15] MEDS: FENTANYL PF 2,500 MCG in SODIUM CHLORIDE 0.9% 200 ML IV PRN (21:20)
[2021-06-16] MEDS: ALBUTEROL/IPRATROPIUM 2.5MG/0.5MG, 3 ML NPPB SCH ×3 (03:00→15:00)
[2021-06-16] MEDS: CEFAZOLIN PMX 2GM/50ML 50 ML IVPB SCH ×2 (03:28→10:42)
[2021-06-16] MEDS: PROPOFOL 100 ML IV PRN ×2 (03:53→10:42)
[2021-06-16 05:05] LABS: MEAN CORPUSCULAR HEMOGLOBIN 30.3 pg (27.0-34.8); MEAN CORPUSCULAR HGB CONC 33.4 g/dL (32.4-35.8); MEAN PLATELET VOLUME 9.2 fL (7.4-10.4); PLATELET COUNT 433 x10^3/uL (130-400); RED BLOOD COUNT 3.65 x10^6/uL (3.82-5.3); RED CELL DISTRIBUTION WIDTH 12.9 % (9.6-15.2)
[2021-06-16 05:10] LABS: ANION GAP 3 mmol/L (5-15); CALCIUM 8.8 mg/dL (8.5-10.1); CHLORIDE 95 mmol/L (98-107); CREATININE 0.39 mg/dL (0.55-1.02)
[2021-06-16 06:28] LABS: BAND#(MANUAL) 0.16 x10^3/uL; BANDS%(MANUAL) 2 % (0-7); BASOS#(MANUAL) 0.08 x10^3/uL (0-0.1); BASOS% (MANUAL) 1 % (0-1); EOS#(MANUAL) 0.24 x10^3/uL (0.0-0.4); EOS% (MANUAL) 3 % (1-7); LYMPH#(MANUAL) 1.03 x10^3/uL (1-3.4); LYMPHS% (MANUAL) 13 % (22-44); METAMYELOCYTES# (MANUAL) 1.03 x10^3/uL (0-0); METAMYELOCYTES% (MANUAL) 13 % (0-1); MONOS#(MANUAL) 0.47 x10^3/uL (0.3-2.7); MONOS% (MANUAL) 6 % (2-9); MYELOCYTES# (MANUAL) 0.16 x10^3/uL (0-0); MYELOCYTES% (MANUAL) 2 % (0-0); SEG#(MANUAL) 4.74 x10^3/uL (1.8-6.8); SEGS% (MANUAL) 60 % (42-75)
[2021-06-16 06:29] LABS: <PLATELET ESTIMATE> INCREASED; <PLT MORPHOLOGY> NORMAL PLT MORPH; POLYCHROMASIA 1+
[2021-06-16] MEDS: FUROSEMIDE 40 MG/4 ML IV SCH ×2 (06:32→17:00)
[2021-06-16] MEDS ORDERED: POTASSIUM CHLORIDE 10% 40 MEQ/30 ML UDC PO ONE (07:00)
[2021-06-16] MEDS: DOXYCYCLINE 100 MG in DEXTROSE 5% 250 ML IV SCH (08:02)
[2021-06-16] MEDS: ENOXAPARIN 100 MG/ML SQ SCH (08:03)
[2021-06-16] MEDS: POTASSIUM CHLORIDE 10% 40 MEQ/30 ML UDC PO SCH (08:04)
[2021-06-16] MEDS: ARTIFICIAL TEARS OINT 3.5 GM EACHEYE SCH ×2 (08:04→15:45)
[2021-06-16] MEDS: DEXAMETHASONE 4 MG/ML, 1ML IVPush SCH (08:05)
[2021-06-16] MEDS: SODIUM CHLORIDE FLUSH 10ML SYR IVF SCH (08:05)
[2021-06-16] MEDS: ASCORBIC ACID 500 MG TABLET PO SCH ×2 (08:05→17:00)
[2021-06-16] MEDS: PREGABALIN 200 MG CAPSULE PO SCH (08:05)
[2021-06-16] MEDS: CHOLECALCIFEROL 1,000 UNIT TABLET PO SCH (08:06)
[2021-06-16] MEDS: ZINC SULFATE 220 MG CAPSULE PO SCH (08:06)
[2021-06-16] MEDS: TOPIRAMATE 25 MG TABLET PO SCH (08:06)
[2021-06-16] MEDS: SERTRALINE 100MG TABLET PO SCH (08:06)
[2021-06-16] MEDS: THIAMINE 100MG TABLET PO/NG SCH (08:07)
[2021-06-16] MEDS ORDERED: LORazepam 2 MG/ML, 1ML IV ONE (16:00)
[2021-06-16] MEDS ORDERED: MORPHINE SULFATE 4 MG/ML, 1ML IV ONE (16:00)
[2021-06-16] MEDS: MORPHINE SULFATE 4 MG/ML, 1ML IVPush PRN ×2 (17:00→17:30)
== END 2021-06-17 01:25 | DRG 870 ==
LOC: 3N 06-06 01:07 → 5SO 06-06 11:34 → CCU 06-06 14:11
PROVIDERS: ADMIT Family Medicine; ATTEND Hospitalist
PROC: 5A1955Z Respiratory Ventilation, Greater than 96 Consecutive Hours (ICD-10-PCS; principal; 2021-06-06)
PROC: 0BH17EZ Insertion of Endotracheal Airway into Trachea, Via Natural or Artificial Opening (ICD-10-PCS; 2021-06-06)
PROC: 02HV33Z Insertion of Infusion Device into Superior Vena Cava, Percutaneous Approach (ICD-10-PCS; 2021-06-06)
PROC: B548ZZA Ultrasonography of Superior Vena Cava, Guidance (ICD-10-PCS; 2021-06-06)
PROC: XW033E5 Introduction of Remdesivir Anti-infective into Peripheral Vein, Percutaneous Approach, New Technology Group 5 (ICD-10-PCS; 2021-06-06)
PROC: 0T9B70Z Drainage of Bladder with Drainage Device, Via Natural or Artificial Opening (ICD-10-PCS; 2021-06-07)
PROC: 0W9930Z Drainage of Right Pleural Cavity with Drainage Device, Percutaneous Approach (ICD-10-PCS; 2021-06-14)
DX: A41.89 Other specified sepsis (principal); U07.1 COVID-19; J12.82 Pneumonia due to coronavirus disease 2019; G93.41 Metabolic encephalopathy; I63.40 Cerebral infarction due to embolism of unspecified cerebral artery; J80 Acute respiratory distress syndrome; J15.212 Pneumonia due to Methicillin resistant Staphylococcus aureus; F11.20 Opioid dependence, uncomplicated; N39.0 Urinary tract infection, site not specified; Z68.41 Body mass index [BMI] 40.0-44.9, adult; I50.30 Unspecified diastolic (congestive) heart failure; J93.83 Other pneumothorax; Z66 Do not resuscitate; E66.9 Obesity, unspecified; E78.5 Hyperlipidemia, unspecified; E87.6 Hypokalemia; G89.29 Other chronic pain; M19.90 Unspecified osteoarthritis, unspecified site; Z96.643 Presence of artificial hip joint, bilateral; Z96.653 Presence of artificial knee joint, bilateral; I95.9 Hypotension, unspecified; R00.1 Bradycardia, unspecified; R74.01 Elevation of levels of liver transaminase levels; Z78.1 Physical restraint status; Z87.891 Personal history of nicotine dependence; Z98.84 Bariatric surgery status; Z91.041 Radiographic dye allergy status; Z91.040 Latex allergy status; Z91.013 Allergy to seafood; Z90.49 Acquired absence of other specified parts of digestive tract
CPT/HCPCS: 32557; 36415; 36573; 36600; 70450; 71045; 80048; 80053; 81001; 82550; 82607; 82803; 82962; 83615; 83735; 83880; 84100; 84145; 84439; 84443; 84478; 84481; 84484; 85025; 85379; 86140; 87040; 87070; 87081; 87086; 87186; 87205; 93005; 93306; 94002; 94003; 94640; G0378; J0690; J0696; J1100; J1650; J1940; J2250; J2704; J3010; J3411; J3480; J7060; C1729; C1751; C1769; J0330; J1630; J2060; J2270; J3475; J7050